=== PATIENT | female | born 1975 | race African-American/Black ===

== ENCOUNTER 2018-04-06 15:04 | Emergency (ER) | payer OTHER, BC ==
[~2018-04-06] VITALS: Ht 160 cm; Wt 101.3 kg
[2018-04-06] MEDS ORDERED: SYNTHROID175 MCG PO (15:33)
[2018-04-06 16:45] VITALS: BP 123/88
== END 2018-04-06 16:45 | disposition home or self-care (01) | DRG 563 ==
LOC: ED 15:04
DX: S66.911A Strain of unspecified muscle, fascia and tendon at wrist and hand level, right hand, initial encounter (principal); E03.9 Hypothyroidism, unspecified; W50.0XXA Accidental hit or strike by another person, initial encounter; Y93.89 Activity, other specified; Y92.211 Elementary school as the place of occurrence of the external cause; Y99.0 Civilian activity done for income or pay